=== PATIENT | female | born 1995 | race Caucasian/White ===

== ENCOUNTER 2018-11-20 10:00 | Day surgery (SDC) | payer OTHER, SELFPAY ==
[2018-11-20] VITALS (10 sets, daily range): BP systolic 110–132; BP diastolic 64–88; PULSE 55–103; RESP 16–20; TEMP 36–38; O2SAT 96–100; BMI 35.8
[2018-11-20 10:45] LABS: Internal QC Validated? YES +Cl - CLEAR BKGD; Pregnancy, Urine Negative Negative
[2018-11-20] MEDS: Cefazolin 2 GM in 0.9% Normal Saline 100 ML IV (11:48)
--- NOTE | 2018-11-20 12:23 | DCINST_ITS ---
Discharge Diet: No Restrictions Discharge Activity: Return to Normal Activity, May not drive while taking narcotic pain medications., May Shower, May Take a Tub Bath Call your doctor if your incision/area has: Increased Pain/ Swelling Call your doctor if you observe: Fever of 101 or Higher, Inability to urinate, Shortness of breath, Chest pain, Calf discomfort Allergies/Adverse Reactions: Allergies latex Allergy (Verified 11/18/18 11:56) Hives Medications to take at Discharge Albuterol IH (ProAir) [Proair Hfa (SP)Vent Pts] 1 - 2 puff INHALATION Q6H PRN PRN 11/18/18 Bupropion HCl [Wellbutrin Sr] 150 mg PO DAILY 11/18/18 Cetirizine HCl [Zyrtec] 10 mg PO DAILY 11/18/18 Montelukast Sodium [Singulair] 10 mg PO DAILY 11/18/18 Primary Care Physician: Bernardino Mcgrath MD [Primary Care Provider] - Test Results: Test results from this visit will be discussed in further detail at your follow- up appointment, if applicable. Please Follow Up With: Margarita Boo MD When: 3 WEEKS WITH LISA Proposed Discharge Date: 11/20/18
--- NOTE | 2018-11-20 12:52 | OP.PN_ITS ---
Immediate Post-Op Note Date of Procedure: 11/20/18 Primary Surgeon/Physician: Margarita Boo MD drum carrier: Margarita Boo Pre-Operative Diagnosis: left renal calculus Post-Operative Diagnosis: same Surgery/Procedure Performed:: left renal extracorporeal shockwave lithotripsy Description of Surgical Findings:: stones well fragmented with 3000shocks. 2 stones seen, one 7.5mm, other 4-5mm. Estimated Blood Loss: 0cc Specimen's removed: none Type of Anesthesia:: General - Admit VTE Documentation VTE Present on Admission: Yes VTE Mechan Device Prophylaxis: SCD's VTE Pharm Prophylaxis ordered?: No Reason prophylaxis not ordered:: Treatment Not Indicated
--- NOTE | 2018-11-20 12:52 | PCM.OPRPT ---
Problem List (1) Renal calculus, left Status: Acute Report of Operation Date of Procedure: 11/20/18 Pre-Operative Diagnosis: left renal calculus Post-Operative Diagnosis: same Surgery/Procedure Performed:: left renal extracorporeal shockwave lithotripsy Description of Surgical Findings:: stones well fragmented with 3000shocks. 2 stones seen, one 7.5mm, other 4-5mm. service sprinkler helper: Margarita Boo Type of Anesthesia:: General Specimen's removed: none Estimated Blood Loss (mL): 0cc Description of Procedure: The patient is a 23-year-old female with a history of left renal calculi presented to the office for definitive treatment secondary to intermittent left renal colic. After discussing all the risks benefits and alternatives with the patient and her mother, we agreed to proceed with extracorporal shockwave lithotripsy. She was taken to the operating room and placed on the operating room table. She was aligned with the lithotripter and 2 stones were easily seen in the area of the left renal pelvis. The largest was approximately 7.5 mm and the other one 4-5 mm in size. In total, 3000 shocks were applied to the stones. The stones were well fragmented at the conclusion of the case. The patient tolerated the procedure well without immediate complication. Grafts/Implants Used: none - Complications none - Admit VTE Documentation VTE Present on Admission: Yes VTE Mechan Device Prophylaxis: SCD's VTE Pharm Prophylaxis ordered?: No Reason prophylaxis not ordered:: Treatment Not Indicated
[2018-11-20] MEDS: HYDROcodone Bitartrate/Apap 5/325 Tablet PO (15:36)
--- NOTE | 2018-11-20 15:53 | SUR.PHASEII ---
AT 1530, PATIENT ASKING FOR PAIN MEDICATION, HOLDING LEFT FLANK, GRIMACING, IRRITABLE, NO PO MEDS ORDERED. PAGED DR GALLEGOS, ORDER OBTAINED. AT 1551 AFTER UP TO BATHROOM VIA WHEELCHAIR TO VOID, SOBBING, HOLDING LEFT FLANK, WRITHING IN PAIN. COMFORT MEASURES OFFERED, PAGING DR GALLEGOS.
--- NOTE | 2018-11-20 15:59 | CT_ITS ---
STUDY: CT ABDOMEN AND PELVIS WITHOUT CONTRAST REASON FOR EXAM: Female, 23 years old. Left kidney stone, lithotripsy. RADIATION DOSAGE (If Supplied By Facility): CTDIvol = ( 14.64 ) mGy, DLP = ( 776.51 ) mGycm TECHNIQUE: Transaxial images were obtained from the dome of the diaphragm to the symphysis pubis without oral contrast, and without intravenous contrast. Sagittal and coronal images were reconstructed. Individualized dose optimization techniques were used for this CT. COMPARISON: None. FINDINGS: Body wall soft tissues: No acute process. Osseous structures: No acute process. Inferior chest: No acute process. Hepatobiliary: Normal. Pancreas: No acute process. Spleen: Normal. Adrenal glands: Normal. Urogenital: There are no visible retained calculi of the right kidney. No right hydronephrosis or hydroureter. There are a few tiny retained nonobstructing calyceal calculi of the left kidney, the largest measuring approximately 3 mm. There are 3 tiny calculi within the collecting system itself, the largest measuring about 3 mm. There is very slight plethora of the left kidney with very minimal perinephric stranding. There is increased thickness of the wall of the left renal pelvis and left ureter with mild induration in the fat adjacent. There is no visible calculus along the course of the left ureter. There are 2 adjacent calculi dependent within the posterior base of the urinary bladder lumen, layering against the wall. These may have been recently passed. These measure proximally 4 mm and 3 mm respectively. The urinary bladder is otherwise normal. Normal uterus, ovaries and adnexa with no cul-de-sac free fluid. Pelvic floor and sidewalls and retroperitoneum: No mass or adenopathy. Vasculature: No acute process. Stomach: No acute process. Small bowel and mesentery: No acute process. Large bowel: Normal appendix, large bowel and rectum. Free fluid or free air: None. CT/Abdomen/Pelvis without Cont IMPRESSION: Mild left hydronephrosis and hydroureter. 2 small calculi dependent within the urinary bladder may have recently passed. There is no residual ureteral calculus. There are 3 tiny calculi within the left renal pelvis, nonobstructing. There are a few tiny calyceal calculi of the left kidney, nonobstructing. There are no retained calculi in the right kidney. Electronically Signed: Simba Michelle MD at 16:34 EST Tel , Service support ,
[2018-11-20] MEDS: Ketorolac 30 MG/ML Syringe IV (16:09)
--- NOTE | 2018-11-20 16:15 | SUR.PHASEII ---
AT 1555, DR GALLEGOS RETURNS PAGE, UPDATED ON WRITING IN PAIN, SOBBING TEARS, AGITATED. DR GALLEGOS STATES THE MOTHER JUST CALLED HER WELL. CT ABDOMEN/PELVIS ORDERED, DX LEFT KIDNEY STONE, TORADOL ORDERED. SCOPOLAMINE PATCH APPLIED PER DR LEXI CARRANZA ORDER FOR RENEWED C/O NAUSEA. SUYAPA IN RADIOLOGY/CT STATES FOUR STAT PATIENT CUED AHEAD OF THIS PATIENT, WILL CALL WHEN SCANNER READY. MOTHER AND PATIENT GIVEN THOROUGH EXPLANATION OF MEDICATION, PROCEDURE FOR CT SCAN AND RESULTS. PATIENT TRANSPORTED TO RADIOLOGY AT 1514. RETURNED AT 1423. AWAITING CALL FROM DR GALLEGOS.
--- NOTE | 2018-11-20 16:56 | SUR.PHASEII ---
AT 1649, DR GALLEGOS NOTIFIED OF CT SCAN RESULTS, STATES PATIENT WAS ACTIVELY PASSING A STONE. PATIENT RESTING MORE COMFORTABLY AT THIS TIME BUT STILL SOMEWHAT TEARFUL, NO LONGER WRITHING IN BED. DR GALLEGOS STATES PATIENT CAN BE D/C HOME, WILL FOLLOW UP IN OFFICE PLANNED. WILL UPDATE MOTHER AND PATIENT.
--- OUTSIDE RECORDS SUMMARY | 2019-01-25 02:48 | XMS RPT_ITS ---
:1995 Author Organization [employer] Address [address] [place] [address] Phone Care Team Providers Name Role Phone Naveed SCHWARTZ, Vivek Goldberg Reason for Visit Reason For Visit Description Start Date Postop - 1st visit Preliminary reason for visit data, not yet signed by the author as of left knee post Diagnostic arthroscopy and left knee with lateral meniscal repair and PRP injection. on 06/06/2018 Preliminary reason for visit data, not yet signed by the author as of Chief Complaint Chief Complaint Description Start Date left knee post Diagnostic arthroscopy and left knee with lateral meniscal repair and PRP injection. on 06/06/2018 Preliminary chief complaint data, not yet signed by the author as of Instructions Instruction Description Start Date Patient advised to follow-up with Primary Care Physician for BMI management. Plan of Care Type Date Detail Appointment 01:00 PM Vivek Lucio MD, [address] [facility], [place], [address], Medications Medication Instructions Start Stop Generic Name NDC Provider Date Date ZYRTEC ALLERGY 1 tablet daily CETIRIZINE HCL 03726445109 Sandy 10 MG TABS 0 Corsaro BRICK CLEANER SINGULAIR 10 1 tablet daily MONTELUKAST 19799896321 Sandy MG TABS 0 SODIUM Corsaro BRICK CLEANER PROAIR HFA 2 inhalation ALBUTEROL [id number] Sandy AERS daily as 0 SULFATE AERS Corsaro BRICK CLEANER needed PATANOL SOLN 1-2 drops each OLOPATADINE 05281316591 Sandy eye daily as 0 HCL SOLN Corsaro BRICK CLEANER needed Conditions or Problems Problem Name Problem Onset Status Entry Provider Comment Standard Annotate Code Date Date Description Other tear 734370771 Active Vivek Maier Tear of of lateral (SNOMED CT) / Fleissner lateral meniscus, meniscus of current knee injury, left knee, subsequent encounter Other tear S83.282A Active Vivek Maier Other tear of lateral (ICD-10-CM) / Fleissner of lateral meniscus MD meniscus, current current injury left injury, left knee initial knee, encounter initial encounter Allergies, Adverse Reactions, Alerts Allergy Name Reaction Start Date Severity Status Provider Description SEASONAL Critical Active Sandy Corsaro BRICK CLEANER LATAX Critical Active Sandy Corsaro BRICK CLEANER ANIMALS Critical Active Sandy Corsaro BRICK CLEANER Social History Concept Description Observation Name Observation Value Units Start Date Employment detail OCCUPATION#1 construction Preliminary social history data, not yet signed by the author as of Vital Signs Date Name Value Unit Description BMI (Body Mass 34.85 kg/m2 Body Mass Index Index) [Ratio] Preliminary vital sign data, not yet signed by the author as of BP Diastolic 84 mm[Hg] blood pressure, diastolic Preliminary vital sign data, not yet signed by the author as of BP Systolic 124 mm[Hg] blood pressure, systolic Preliminary vital sign data, not yet signed by the author as of Heart Rate 98 /min pulse rate E&M Preliminary vital sign data, not yet signed by the author as of Height 70 [in_us] height E&M Preliminary vital sign data, not yet signed by the author as of Height 178 cm height in centimeters E&M Preliminary vital sign data, not yet signed by the author as of Weight Measured 242 [lb_av] weight E&M Preliminary vital sign data, not yet signed by the author as of Weight Measured 110 kg weight in kilograms E&M Preliminary vital sign data, not yet signed by the author as of Results Date Name Value Unit Range Flag Description Office Visit: Postop - 1st visit, Rm: 12 MEDS REVIEW Done Documentation of current medications (procedure) Preliminary observation data, not yet signed by the author as of Preliminary observation data, not yet signed by the author as of Clinical Summary: HMSPatientID OOP account number Procedures Code Procedure Name Date Entry Date G8730 Pain assessment documented as positive - follow-up documented G8427 Current medications documented 1036F Tobacco screening was negative - non user G8417 BMI documented as above normal parameters - follow-up documented G8783 Blood pressure within normal parameters - no follow-up required [id number] Patient Encounter Medications Administered No information available. Immunizations No information available. Advance Directives There may be information available, but it has not been provided by the sender. Assessments There may be information available, but it has not been provided by the sender. Review of Systems There may be information available, but it has not been provided by the sender. Family History There may be information available, but it has not been provided by the sender. History of Past Illness There may be information available, but it has not been provided by the sender. History of Present Illness There may be information available, but it has not been provided by the sender.
--- OUTSIDE RECORDS SUMMARY | 2019-01-25 02:48 | XMS RPT_ITS ---
:1995 Author Organization [employer] Address [address] [place] [address] Phone Care Team Providers Name Role Phone Naveed SCHWARTZ, Vivek Maier Unavailable Reason for Visit Reason For Visit Description Start Date Postop - 1st visit Preliminary reason for visit data, not yet signed by the author as of left knee post torn lateral meniscal repair on 09/05/2018 Preliminary reason for visit data, not yet signed by the author as of Chief Complaint Chief Complaint Description Start Date left knee post torn lateral meniscal repair on 09/05/2018 Preliminary chief complaint data, not yet signed by the author as of Instructions Instruction Description Start Date Patient advised to follow-up with Primary Care Physician for BMI management. Plan of Care Type Date Detail Appointment 10:30 AM Vivek Lucio MD, [address], [address], Patient education \cps-sql1\CPS_PtEducation\CDC _FALL_PREVENTION.pdf, \cps-sql1\CPS_PtEducation\CDC _FALL_PREVENTION.pdf Medications Medication Instructions Start Stop Generic Name NDC Provider Date Date WELLBUTRIN SR taken once daily / BUPROPION HCL 06340948053 Vivek Maier 150 MG 08 Naveed SCHWARTZ [id number] ZYRTEC ALLERGY 1 tablet daily / CETIRIZINE HCL 28955927218 Sandy 10 MG TABS 20 Corsaro REGISTERED VASCULAR TECHNOLOGIST (RVT) SINGULAIR 10 1 tablet daily / MONTELUKAST 84513771324 Sandy MG TABS 20 SODIUM Corsaro REGISTERED VASCULAR TECHNOLOGIST (RVT) PROAIR HFA 2 inhalation / ALBUTEROL 07194806926 Sandy AERS daily as 20 SULFATE AERS Corsaro REGISTERED VASCULAR TECHNOLOGIST (RVT) needed PATANOL SOLN 1-2 drops each / OLOPATADINE 12279694992 Sandy eye daily as 20 HCL SOLN Corsaro REGISTERED VASCULAR TECHNOLOGIST (RVT) needed Conditions or Problems Problem Name Problem Onset Status Entry Provider Comment Standard Annotate Code Date Date Description 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 Vivek Maier Tibial plateau of left (SNOMED 11/20 11/20 Fleissner chondromal[address] lateral tibial CT) plateau Tibial plateau 6636408 Active Vivek Maier Tibial plateau chondromalacia (SNOMED 11/20 11/[address]) Other tear of 200893536 Active Vivek Maier Tear of lateral lateral (SNOMED 06/14 06/14 Fleissner meniscus of meniscus, CT) knee current injury, left knee, subsequent encounter Other tear of S83.282A Active Vivek Maier Other tear of lateral (ICD-10-CM 05/27 05/27 Fleissner lateral meniscus ) meniscus, current injury current injury, left knee left knee, initial initial encounter encounter Allergies, Adverse Reactions, Alerts Allergy Name Reaction Start Date Severity Status Provider Description SEASONAL Critical Active Sandy Corsaro REGISTERED VASCULAR TECHNOLOGIST (RVT) LATAX Critical Active Sandy Corsaro REGISTERED VASCULAR TECHNOLOGIST (RVT) ANIMALS Critical Active Sandy Corsaro REGISTERED VASCULAR TECHNOLOGIST (RVT) Social History Concept Description Observation Name Observation Value Units Start Date Alcohol use ETOH USE Yes Preliminary social history data, not yet signed by the author as of Vital Signs Date Name Value Unit Description BMI (Body Mass 29.64 kg/m2 Body Mass Index Index) [Ratio] Preliminary vital sign data, not yet signed by the author as of BP Diastolic 84 mm[Hg] blood pressure, diastolic Preliminary vital sign data, not yet signed by the author as of BP Systolic 128 mm[Hg] blood pressure, systolic Preliminary vital sign data, not yet signed by the author as of Heart Rate 73 /min pulse rate E&M Preliminary vital sign data, not yet signed by the author as of Height 69 [in_us] height E&M Preliminary vital sign data, not yet signed by the author as of Height 175 cm height in centimeters E&M Preliminary vital sign data, not yet signed by the author as of Weight Measured 200 [lb_av] weight E&M Preliminary vital sign data, not yet signed by the author as of Weight Measured 91 kg weight in kilograms E&M Preliminary vital sign data, not yet signed by the author as of Results Date Name Value Unit Range Flag Description Office Visit: Postop - 1st visit, Rm: 31 MEDS REVIEW Done Documentation of current medications (procedure) Preliminary observation data, not yet signed by the author as of XRAY HX of the left knee xray history on 09/05/2018 at [facility] Preliminary observation data, not yet signed by [...] within normal parameters - no follow-up required [facility]-[id number] Patient Encounter Medications Administered No information available. [...]
--- OUTSIDE RECORDS SUMMARY | 2019-01-25 02:48 | XMS RPT_ITS ---
:02/18/2000 Author Organization [employer] Address [address] [place] [address] Phone Care Team Providers Name Role Phone Naveed SCHWARTZ, Vivek Maier Unavailable Reason for Visit Reason For Visit Description Start Date Follow-up by complaint Preliminary reason for visit data, not yet signed by the author as of lower back deformity Preliminary reason for visit data, not yet signed by the author as of Chief Complaint Chief Complaint Description Start Date lower back deformity Preliminary chief complaint data, not yet signed by the author as of Instructions Instruction Description Start Date Completed Plan of Care Type Date Detail Appointment 02:00 PM Vivek Lucio MD, [address] [facility], [place], [address], Medications Medication Instructions Start Date Stop Date Generic Name NDC Provider Observed no known medications at Conditions or Problems Problem Name Problem Onset Status Entry Provider Comment Standard Annotate Code Date Date Description Scoliosis 71160284 Active Vivek Maier Idiopathic (and (05/[address]) AND/OR is), kyphoscoliosis idiopathic Allergies, Adverse Reactions, Alerts Observed no known allergies at Social History Concept Description Observation Name Observation Value Units Start Date Employment detail OCCUPATION#1 student Preliminary social history data, not yet signed by the author as of Vital Signs Date Name Value Unit Description BMI (Body Mass 20.62 kg/m2 Body Mass Index Index) [Ratio] Preliminary vital sign data, not yet signed by the author as of BP Diastolic 70 mm[Hg] blood pressure, diastolic Preliminary vital sign data, not yet signed by the author as of BP Systolic 100 mm[Hg] blood pressure, systolic Preliminary vital sign data, not yet signed by the author as of Heart Rate 83 /min pulse rate E&M Preliminary vital sign data, not yet signed by the author as of Height 74 [in_us] height E&M Preliminary vital sign data, not yet signed by the author as of Height 188 cm height in centimeters E&M Preliminary vital sign data, not yet signed by the author as of Weight Measured 160 [lb_av] weight E&M Preliminary vital sign data, not yet signed by the author as of Weight Measured 73 kg weight in kilograms E&M Preliminary vital sign data, not yet signed by the author as of Results Date Name Value Unit Range Flag Description Office Visit: Follow-up by complaint, Rm: 30 MEDS REVIEW Done Documentation of current medications (procedure) Preliminary observation data, not yet signed by the author as of Preliminary observation data, not yet signed by the author as of Clinical Summary: HMSPatientID OOP account number Clinical Summary: Data Submitted by Patient in Portal DEP EXERCISE No data entered by patient, exercise history DEP DRUG USE No data entered by patient, drug (of abuse) use DEP ETOH USE No data entered by patient, alcohol (ethanol or ETOH) use DEP SH CSMO never smoker data entered by patient, social history, current smoker [employer] 2 floors housing unit size (asthma environmental history, housing) (from single family to don't know) [place] house Housing Type: apartment, house, intermediate, trailer, none #DEP CHLDRN No Number of dependent children DEP SH MAST single data entered by patient, social history, marital status DEP EMPLOYER unemployed data entered by patient, Employer Name FATHER A/D Alive father of patient is alive or MOTHER A/D Alive mother of patient is alive or [employer] entered surgical history comments DEP SURGERY Appendectomy Data entered by patient, history of past surgeries DEP PROB LST I do not have any Data entered by past medical patient, problem illnesses or list conditions RLATNSHPINFR Mother Relationship of informant to patient DEBPCURRMED I am not taking Data Entered by any medications, Patient, Current vitamins or Medications Taking supplements. DEP ALG LIST I don't have any Data entered by drug allergies.,I patient, allergy don't have any list food allergies.,I don't have any environmental allergies. Procedures No information available. Medications Administered No information available. Immunizations No [...]
--- OUTSIDE RECORDS SUMMARY | 2019-01-25 02:49 | XMS RPT_ITS ---
:1995 Author Organization [facility] Address [facility] [place] [address] Phone Care Team Providers Name Role Phone Naveed SCHWARTZ, Vivek Goldberg Reason for Visit Reason For Visit Description Start Date New/Est - 1st visit with physician Preliminary reason for visit data, not yet signed by the author as of left knee pain Preliminary reason for visit data, not yet signed by the author as of Chief Complaint Chief Complaint Description Start Date left knee pain Preliminary chief complaint data, not yet signed by the author as of Instructions Instruction Description Start Date Patient advised to follow-up with Primary Care Physician for BMI management. Plan of Care Type Date Detail Appointment 03:00 PM Vivek Lucio MD, [address] [email or web address], [place], [address], Appointment 09:00 AM Vivek Lucio MD, [address] [facility], [email or web address], [place], [address], Pending order XR KNEE 1-2 VWS-[id number] Pending order MRI left knee without contrast Medications Medication Instructions Start Stop Generic Name NDC Provider Date Date ZYRTEC ALLERGY 1 tablet daily CETIRIZINE HCL 43355457002 Sandy 10 MG TABS 0 [place] [employer] HELPER SINGULAIR 10 1 tablet daily MONTELUKAST [id number] Sandy MG TABS 0 SODIUM [place] [employer] HELPER PROAIR HFA 2 inhalation 2018/07/2 ALBUTEROL [id number] Sandy AERS daily as 0 SULFATE AERS [place] PIPE INS[employer]ATOR HELPER needed PATANOL SOLN 1-2 drops each OLOPATADINE [id number] Sandy eye daily as 0 HCL SOLN [place] PIPE INS[employer]ATOR HELPER needed Conditions or Problems Problem Problem Onset Status Entry Provider Comment Standard Annotate Name Code Date Date Description Other tear S83.282A Active Vivek Darrion Other tear of of lateral (ICD-10-C / Fleissner lateral meniscus M) meniscus, current current injury left injury, left knee knee, initial initial encounter encounter Allergies, Adverse Reactions, Alerts Allergy Name Reaction Start Date Severity Status Provider Description SEASONAL Critical Active Sandy Corsaro PIPE INS[employer]ATOR HELPER LATAX Critical Active Sandy Corsaro PIPE INSULATOR HELPER ANIMALS Critical Active Sandy Corsaro PIPE INSULATOR HELPER Social History Concept Description Observation Name Observation Value Units Start Date Employment detail OCCUPATION#1 construction Preliminary social history data, not yet signed by the author as of Vital Signs Date Name Value Unit Description BMI (Body Mass 34.85 kg/m2 Body Mass Index Index) [Ratio] Preliminary vital sign data, not yet signed by the author as of BP Diastolic 91 mm[Hg] blood pressure, diastolic Preliminary vital sign data, not yet signed by the author as of BP Diastolic 87 mm[Hg] blood pressure, diastolic, second observation Preliminary vital sign data, not yet signed by the author as of BP Systolic 136 mm[Hg] blood pressure, systolic Preliminary vital sign data, not yet signed by the author as of BP Systolic 116 mm[Hg] blood pressure, systolic, second observation Preliminary vital sign data, not yet signed by the author as of Heart Rate 80 /min pulse rate E&M Preliminary vital sign [...] Value Unit Range Flag Description Office Visit: New/Est - 1st visit with physician, Rm: 31 MEDS REVIEW Done Documentation of [...] within normal parameters - no follow-up required [id number] Patient Encounter Medications Administered No information available. [...]
--- OUTSIDE RECORDS SUMMARY | 2019-01-25 02:49 | XMS RPT_ITS ---
:1995 Author Organization OHIP Care Team Providers Name Role Phone Margarita Boo Attending Unavailable Margarita Boo Referring Unavailable Bernardino López Primary Care Unavailable HITESH AGUILA Attending Unavailable VIVEK LUCIO Referring Unavailable BERNARDINO LÓPEZ Primary Care Unavailable VIVEK LUCIO Admitting Unavailable VIVEK LUCIO Attending Unavailable BERNARDINO LÓPEZ Primary Care Unavailable VIVEK LUCIO Admitting Unavailable VIVEK LUCIO Attending Unavailable BERNARDINO LÓPEZ Primary Care Unavailable VIVEK LUCIO Admitting Unavailable VIVEK LUCIO Attending Unavailable PEDRO ZIMMEMRAN Attending Unavailable Sokari, Telemate Admitting Unavailable Somadny, Telemate Attending Unavailable Bernardino López Primary Care Unavailable Bernardino López Primary Care Unavailable Eva Palomares Admitting Unavailable Eva Palomares Attending Unavailable PROBLEMS PROBLEMS DATE TYPE CONDITION / CODE ATTENDING STATUS SOURCE 11/20/2018 Unknown N20.0 - Calculus Margarita Boo Active [facility] N20.0(ICD-10) Hospital Repository 03/16/2018 Active Unspecified ELSIE, Active [facility] abdominal pain / PEDRO LOU Other [place] R10.9(ICD-10) Repository PROCEDURES PROCEDURES No Procedure Records FoundRESULTS RESULTS UA COMPLETE Collected: 11/21/2018 Status: F Source: GNOSTICIST 8:09 AM [facility] REPOSITORY TYPE CODE TESTS RESULT OUT OF REFERENCE UNITS RANGE LAB 07783690( Yellow LOINC) UA Color Normal Colorless LAB 04469463( Clear LOINC) UA Clarity Normal Clear LAB 83654794( Negative LOINC) UA Glucose Normal Negative LAB 23813896( Negative LOINC) UA Bili Normal Negative LAB 12597659( Negative LOINC) UA Ketones Normal Negative LAB 97017675( 1.003-1.030 LOINC) UA Spec Normal Grav 1.004 LAB 93415592( 4.6-8.0 LOINC) UA pH Normal 7.0 LAB 54130020( Negative LOINC) UA Protein Normal Negative LAB 67759233( LOINC) UA Normal Urobilinogen Negative Result Comment: Due to a manufacturing issue, low positive urobilinogen results may be fasely positive. Correlate with urine bilirubin and additional clinical/laboratory findings to assess the risk of hemolytic anemia or liver disease. If clinically indicated, repeat testing with an alternate method is available by contacting the laboratory within 24 hours. LAB 26197947(LOINC) Negative Normal UA Nitrite Negative LAB 64860970(LOINC) Negative Normal UA Blood 3+ LAB 37553777(LOINC) Negative Normal UA Leuk Est Negative LAB 64107479(LOINC) 0-3 /HPF UA Abnormal RBC 5-10 LAB 61919730(LOINC) 0-5 /HPF Normal UA WBC 0-5 LAB 21166756(LOINC) 0-5 /HPF Normal UA Squam 0-5 Epithelial LAB [id number](LOINC) None /HPF UA Abnormal Bacteria 1+ Performed By: #### [id number] #### [facility] Urinalysis Automated Subsection [address] [place] [address] ABDOMEN/PELVIS WITHOUT Observed: 11/20/2018 Status: F Source: JORDON CONT 4:00 PM [facility] REPOSITORY [facility] Imaging Services [address] [place] [address] Abdomen/Pelvis without Cont MR#: [id number] Acct: [id number] Name: RALPH BARNEY Rep #: [id number] : 1995 F 23 From: Simba Michelle MD PCP: Bernardino López MD [place] [facility]: Abdomen/Pelvis without Cont Date of Exam: 11/20/18 Exam# [id number] Ordering Dr: Margarita Boo MD STUDY: CT ABDOMEN AND PELVIS WITHOUT CONTRAST REASON FOR EXAM: Female, 23 years old. Left kidney stone, lithotripsy. RADIATION DOSAGE (If Supplied By Facility): CTDIvol = ( 14.64 ) mGy, DLP = ( 776.51 ) mGycm TECHNIQUE: Transaxial images were obtained from the dome of the diaphragm to the symphysis pubis without oral contrast, and without intravenous contrast. Sagittal and coronal images were reconstructed. Individualized dose optimization techniques were used for this CT. COMPARISON: None. FINDINGS: Body wall soft tissues: No acute process. Osseous structures: No acute process. Inferior chest: No acute process. Hepatobiliary: Normal. Pancreas: No acute process. Spleen: Normal. Adrenal glands: Normal. Urogenital: There are no visible retained calculi of the right kidney. No right hydronephrosis or hydroureter. There are a few tiny retained nonobstructing calyceal calculi of the left kidney, the largest measuring approximately 3 mm. There are 3 tiny calculi within the collecting system itself, the largest measuring about 3 mm. There is very slight plethora of the left kidney with very minimal perinephric stranding. There is increased thickness of the wall of the left renal pelvis and left ureter with mild induration in the fat adjacent. There is no visible calculus along the course of the left ureter. There are 2 adjacent calculi dependent within the posterior base of the urinary bladder lumen, layering against the wall. These may have been recently passed. These measure proximally 4 mm and 3 mm respectively. The urinary bladder is otherwise normal. Normal uterus, ovaries and adnexa with no cul-de-sac free fluid. Pelvic floor and sidewalls and retroperitoneum: No mass or adenopathy. Vasculature: No acute process. Stomach: No acute process. Small bowel and mesentery: No acute process. Large bowel: Normal appendix, large bowel and rectum. Free fluid or free air: None. CT/Abdomen/Pelvis without Cont IMPRESSION: Mild left hydronephrosis and hydroureter. 2 small calculi dependent within the urinary bladder may have recently passed. There is no residual ureteral calculus. There are 3 tiny calculi within the left renal pelvis, nonobstructing. There are a few tiny calyceal calculi of the left kidney, nonobstructing. There are no retained calculi in the right kidney. Electronically Signed: Simba Michelle MD at 16:34 EST Tel , Service support , CC: Margarita Boo MD; Bernardino López MD Dimmer Board Operator: Signed OPERATIVE REPORT Observed: 11/20/2018 Status: F Source: SUMAVA RESORTS 12:54 PM [facility] REPOSITORY [facility] Medical Records Department [address] [place] [address] Operative Report 11/20/18 1252 MR#: [id number] Acct: [id number] Name: RALPH BARNEY Rep #: [id number] : 1995 23 From: Margarita Boo MD PCP: Bernardino López MD Status: [place] [facility] [place] Location: [place] [address] Problem List (1) Renal calculus, left Status: Acute Report of Operation Date of Procedure: 11/20/18 Pre-Operative Diagnosis: left renal calculus Post-Operative Diagnosis: same Surgery/Procedure Performed:: left renal extracorporeal shockwave lithotripsy Description of Surgical Findings:: stones well fragmented with 3000shocks. 2 stones seen, one 7.5mm, other 4-5mm. motorcoach operator: Margarita Boo Type of Anesthesia:: General Specimen's removed: none Estimated Blood Loss (mL): 0cc Description of Procedure: The patient is a 23-year-old female with a history of left renal calculi presented to the office for definitive treatment secondary to intermittent left renal colic. After discussing all the risks benefits and alternatives with the patient and her mother, we agreed to proceed with extracorporal shockwave lithotripsy. She was taken to the operating room and placed on the operating room table. She was aligned with the lithotripter and 2 stones were easily seen in the area of the left renal pelvis. The largest was approximately 7.5 mm and the other one 4-5 mm in size. In total, 3000 shocks were applied to the stones. The stones were well fragmented at the conclusion of the case. The patient tolerated the procedure well without immediate complication. Grafts/Implants Used: none - Complications none - Admit VTE Documentation VTE Present on Admission: Yes VTE Mechan Device Prophylaxis: SCD's VTE Pharm Prophylaxis ordered?: No Reason prophylaxis not ordered:: Treatment Not Indicated 11/20/18 1254 <Electronically signed by Margarita Boo MD> Date Margarita Boo MD CC: Margarita Boo MD; Bernardino López MD Signed DISCHARGE INSTRUCTION Observed: 11/20/2018 Status: F Source: JORDON 12:23 PM [facility] REPOSITORY [facility] Medical Records Department [address] [place] [address] Instructions for Home/Discharge Instructions 11/20/18 1221 MR#: [id number] Acct: [id number] Name: RALPH BARNEY Rep #: [id number] : 1995 23 From: Margarita Boo MD PCP: Bernardino López MD Status: REG [facility] Discharge Diet: No Restrictions Discharge Activity: Return to Normal Activity, May not drive while taking narcotic pain medications., May Shower, May Take a Tub Bath Call your doctor if your incision/area has: Increased Pain/ Swelling Call your doctor if you observe: Fever of 101 or Higher, Inability to urinate, Shortness of breath, Chest pain, Calf discomfort Allergies/Adverse Reactions: Allergies latex Allergy (Verified 11/18/18 11:56) Hives Medications to take at Discharge Albuterol IH (ProAir) [Proair Hfa (SP)Vent Pts] 1 - 2 puff INHALATION Q6H PRN PRN 11/18/18 Bupropion HCl [Wellbutrin Sr] 150 mg PO DAILY 11/18/18 Cetirizine HCl [Zyrtec] 10 mg PO DAILY 11/18/18 Montelukast Sodium [Singulair] 10 mg PO DAILY 11/18/18 Primary Care Physician: Bernardino López MD [Primary Care Provider] - Test Results: Test results from this visit will be discussed in further detail at your follow-up appointment, if applicable. Please Follow Up With: Margarita Boo MD When: 3 WEEKS WITH KUB Proposed Discharge Date: 11/20/18 11/20/18 1223 <Electronically signed by Margraita Boo MD> Date Margarita Boo MD CC: Bernardino López MD Signed ,URINE Collected: 11/20/2018 Status: F Source: JORDON 10:37 AM [facility] REPOSITORY Order Comment: Reason for Laboratory Test PRE-OP TYPE CODE TESTS RESULT OUT OF REFERENCE UNITS RANGE LAB L400.8000 Negative Normal HCGUQUAL Negative Result Comment: Very dilute urine specimens, as indicated by a low specific gravity, may not contain retail account representative levels of hCG. If is still suspected, a first morning urine specimen should be collected 48 hours later and tested. Performed By: #### [id number] #### [facility] Laboratory [address] [place], [address] H&P Observed: 10/31/2018 Status: COMPLETED Source: AILEEN 6:37 AM [facility] REPOSITORY PRE-OP HISTORY AND PHYSICAL DATE OF SERVICE: 10/31/2018 ATTENDING PROVIDER: Vivek Lucio MD SURGICAL DIAGNOSIS: left knee cartilage injury Proposed surgical procedure: dx arthroscopy left knee with autologous chondrocyte implantation of tibial plateau CHIEF COMPLAINT: left knee injury HISTORY OF PRESENT ILLNESS: Ralph Barney is a 23 y.o. female who presents today with a PMH significant for surgery to her left knee. The history is provided by the patient and mother and a chart review for evaluation for surgical risk factors. She has had mult surgeries to her left knee and had her last in June 2018- she fell on to the knee in Jul and knew she had an injury- she was seen by Dr Lucio and was scheduled for surgery on her break from school- she is healthy otherwise and is doing well with her asthma MEDICAL/SURGICAL HISTORY: Past Medical History: Diagnosis Date Kidney stone Left Uncomplicated asthma mild/ no hospitalizations Past Surgical History: Procedure Laterality Date ANTERIOR CRUCIATE LIGAMENT REPAIR Left 06/06/2018 DIAGNOSTIC ARTHROSCOPY LEFT KNEE WITH ANTERIOR CRUCIATE LIGAMENT RECSONTRUCTION, PLATELET RICH PLASMA AND COLLAGEN CARRIER performed by Vivek Lucio MD at [facility] OR KNEE ARTHROSCOPY Left 2015 diagnostic arthroscopy left knee with partial lateral menisectomy performed by Vivek Lucio MD at [facility] OR KNEE ARTHROSCOPY Left 09/05/2018 DIAGNOSTIC ARTHROSCOPY LEFT KNEE WITH PARTIAL LATERAL MENISECTOMY performed by Vivek Lucio MD at [facility] OR ORTHOPEDIC SURGERY left meniscus 3 previous repairs Past hospitalizations: no DRUG/FOOD ALLERGIES: Allergies Allergen Reactions Latex Hives Other Other (See Comments) Band aids cause skin breakdown. Shellfish-Derived Products By testing MEDICATIONS: Medications Prior to Admission Medication Sig Dispense Refill Last Dose etogestrel 68 mg IMPL by Subdermal route Taking at Unknown time diphenhydrAMINE (BENADRYL) 25 MG TABS tablet Take 50 mg by mouth every 6 hours as needed for Itching 10/30/2018 at 2340 ALPRAZolam (XANAX) 0.5 MG tablet TAKE 1 TABLET TWICE DAILY NEEDED FOR ANXIETY 0 Not Taking at Unknown time buPROPion (WELLBUTRIN XL) 150 MG XL tablet TAKE 1 TABLET BY MOUTH EVERY DAY 2 10/24/2018 at 0900 montelukast (SINGULAIR) 10 MG tablet TAKE 1 TABLET BY MOUTH EVERY EVENING 5 10/30/2018 at 2100 cetirizine (ZYRTEC) 10 MG tablet Take 10 mg by mouth daily. 10/30/2018 at 2100 ANESTHESIA HISTORY: Difficulty with anesthesia? No Family history of difficulty with anesthesia? no Signs/symptoms of JENNA? no HEME/BLEEDING HISTORY: History of bleeding issues in patient? no Bleeding problems in family? no History of anemia in patient? no Sickle Cell issues in patient or family? N/A REVIEW OF SYSTEMS: Comprehensive review of systems: History obtained from Mother, chart review and the patient. General ROS: negative Respiratory ROS: no cough, shortness of breath, or wheezing Cardiovascular ROS: no chest pain or dyspnea on exertion Gastrointestinal ROS: no abdominal pain, change in bowel habits, or black or bloody stools Musculoskeletal ROS: positive for - joint pain A complete ROS was performed. Pertinent positives have been documented above or are in the HPI. All other systems were negative. Recent Illnesses? no HISTORY: Noncontributory DEVELOPMENTAL HISTORY: Milestones: All met as expected IMMUNIZATIONS: Stated as up to date, no records available SOCIAL/FAMILY HISTORY: Ralph lives with parents Special Needs: None Preferred Language: Eritrean Daycare: No School: Yes: college senior Smoking/Alcohol/Drug Use or Exposure: No Family History Problem Relation Age of Onset Anesth Problems Neg Hx Bleeding Prob Neg Hx VITAL SIGNS: Vitals: 10/31/18 0619 BP: 140/82 Pulse: 109 Resp: 20 Temp: 36 C (96.8 F) Ht Readings from Last 1 Encounters: 10/31/18 175.4 cm Wt Readings from Last 1 Encounters: 10/31/18 (!) 108.1 kg Body mass index is 35.14 kg/m . Facility age limit for growth percentiles is 20 years. SpO2 Readings from Last 3 Encounters: 10/31/18 100% 09/05/18 99% 06/06/18 99% PHYSICAL EXAM: General: Patient appears healthy, well developed, well nourished, in no acute distress Head: atraumatic and normocephalic Neuro: alert, oriented appropriately for age Eyes: pupils equal, round, and reactive to light Ears: canals clear, normal, tragus nontender Nose: nares patent without discharge Dentition: intact Throat: oropharynx is clear Neck: supple Chest: breath sounds are clear to auscultation bilaterally without rales, rhonchi, or wheezes Cardiac: regular rate and rhythm, normal S1 and S2, peripheral pulses strong and equal, capillary refill is normal Abdomen: abdomen is soft, nontender, and nondistended without hepatosplenomegaly or masses Back: deferred Female: deferred Male: na Skin: pink, warm, well perfused Lymphatic: no adenopathy noted Musculoskeletal: left knee with well healed surgical incisions- she has some limited ROM- denies pain/ pink warm mobile toes brisk cap refill DIAGNOSTIC STUDIES REVIEWED: The following lab results have been ordered/reviewed. HCG neg No results found for: CALCIUM, CO2, CL, CREATININE, GLU, K, NA, BUN No results found for: RBC, RDW, WBC, HCT, HGB, MCH, MCHC, MCV, MPV, BASOPCT, EOSPCT, LYMPHOPCT, MONOPCT, NEUTOPHILPCT, CORRECTEDWBC, NEUTROPHIL, NRBC, PLTEST No results found for: HGB No results found for: APTT, INR No results found for: TSH, T7QZXPT, F2EXQPC, THYROIDAB HCG,Urine Date Value Ref Range Status 06/06/2018 Negative mIU/mL Final Comment: Non females and males-Negative females-Positive No results found for: HCGSERUM ASSESSMENT: Patient Active Problem List Diagnosis Tear of meniscus, lateral Asthma Chondromalacia of knee, left Acute cartilage injury of knee, left, initial encounter Ralph Barney is a 23 y.o. female with hx of mult knee surgeries. She presents today for a history and physical for the above mentioned surgical procedure in good condition. She has the following risk factors: none. Based on this evaluation for surgical risk factors and review of necessary clinical studies (if indicated), she has no other past medical history or past surgical history that would impact this procedure. PLAN: Surgery as scheduled Pain management team Patient/family education Nutritional management Hemodynamic monitoring Respiratory monitoring Neurovascular monitoring OTHER FINDINGS OR COMMENTS: Jewelry removed? yes Jeannine Geronimo CNP 10/31/2018 6:37 AM H&P Observed: 09/05/2018 Status: COMPLETED Source: AILEEN 10:22 AM [facility] REPOSITORY .PRE-OP HISTORY AND PHYSICAL DATE OF SERVICE: 09/05/2018 ATTENDING PROVIDER: Vivek Lucio MD SURGICAL DIAGNOSIS: Acute lateral mensicus tear of left knee Proposed surgical procedure: Diagnostic arthroscopy left knee with partial lateral menisectomy CHIEF COMPLAINT: torn meniscus HISTORY OF PRESENT ILLNESS: Ralph Barney is a 23 y.o. female who presents today with a history of multiple repairs to left mensicus (x3--2014, 2015) and recently a left knee ACL repair on 06/2018. She was doing well after her previous surgery; however, she slipped and fell on a wet sidewalk. She fell to the ground and knew immediately her knee was injured. She had immediate pain and swelling. She continues to have pain and instability. Denies numbness/tingling. She has a history of anxiety/depression and asthma, which is currently well controlled. The history is provided by the patient and mother and chart review. MEDICAL/SURGICAL HISTORY: Past Medical History: Diagnosis Date Kidney stone Left Uncomplicated asthma mild/ no hospitalizations Past Surgical History: Procedure Laterality Date ANTERIOR CRUCIATE LIGAMENT REPAIR Left 06/06/2018 DIAGNOSTIC ARTHROSCOPY LEFT KNEE WITH ANTERIOR CRUCIATE LIGAMENT RECSONTRUCTION, PLATELET RICH PLASMA AND COLLAGEN CARRIER performed by Vivek Lucio MD at [facility] OR KNEE ARTHROSCOPY Left 2015 diagnostic arthroscopy left knee with partial lateral menisectomy performed by Vivek Lucio MD at [facility] OR ORTHOPEDIC SURGERY left meniscus 3 previous repairs Past hospitalizations: no DRUG/FOOD ALLERGIES: Allergies Allergen Reactions Latex Hives Other Other (See Comments) Band aids cause skin breakdown. Shellfish-Derived Products By testing MEDICATIONS: Prescriptions Prior to Admission Medication Sig Dispense Refill Last Dose diphenhydrAMINE (BENADRYL) 25 MG TABS tablet Take 50 mg by mouth every 6 hours as needed for Itching 09/05/2018 at 0001 acetaminophen (TYLENOL) 325 MG tablet Take 325 mg by mouth every 4 hours as needed for Pain 09/04/2018 at 1600 etogestrel 68 mg IMPL by Subdermal route Taking at Unknown time ALPRAZolam (XANAX) 0.5 MG tablet TAKE 1 TABLET TWICE DAILY NEEDED FOR ANXIETY 0 Not Taking at Unknown time buPROPion (WELLBUTRIN XL) 150 MG XL tablet TAKE 1 TABLET BY MOUTH EVERY DAY 2 09/04/2018 at 0800 montelukast (SINGULAIR) 10 MG tablet TAKE 1 TABLET BY MOUTH EVERY EVENING 5 09/04/2018 at 2200 cetirizine (ZYRTEC) 10 MG tablet Take 10 mg by mouth daily. 09/04/2018 at 2200 (Not in an outpatient encounter) ANESTHESIA HISTORY: Difficulty with anesthesia? No Family history of difficulty with anesthesia? Mother-- delayed emergence, PONV Signs/symptoms of JENNA? no BLEEDING HISTORY: History of bleeding issues in patient? no Bleeding problems in family? no History of anemia in patient? no Sickle Cell issues in patient or family? N/A REVIEW OF SYSTEMS: Comprehensive review of systems: Psychological ROS: positive for - anxiety and depression Allergy and Immunology ROS: positive for - seasonal allergies Respiratory ROS: positive for - h/o asthma, well controlled Musculoskeletal ROS: positive for - x4 left knee surgeries; left knee pain, swelling, instability A complete ROS was performed. Pertinent positives have been documented above or are in the HPI. All other systems were negative. Recent Illnesses? no HISTORY: Noncontributory DEVELOPMENTAL HISTORY: Milestones: All met as expected IMMUNIZATIONS: Stated as up to date, no records available SOCIAL/FAMILY HISTORY: Ralph lives with on campus (college) Special Needs: None Preferred Language: Eritrean Daycare: No School: Yes: College Smoking/Alcohol/Drug Use or Exposure: No Family History Problem Relation Age of Onset Anesth Problems Neg Hx Bleeding Prob Neg Hx VITAL SIGNS: Vitals: 09/05/18 1020 BP: 106/65 Pulse: 87 Resp: 18 Temp: 36.7 C (98.1 F) Ht Readings from Last 1 Encounters: 09/05/18 175.5 cm Wt Readings from Last 1 Encounters: 09/05/18 (!) 106 kg Body mass index is 34.42 kg/m . Facility age limit for growth percentiles is 20 years. SpO2 Readings from Last 3 Encounters: 09/05/18 100% 06/06/18 99% 06/05/18 100% PHYSICAL EXAM: General: Patient appears healthy, well developed, well nourished, in no acute distress and alert, oriented appropriately for age Head: atraumatic Neuro: alert, oriented appropriately for age Eyes: sclera and conjunctiva clear Ears: canals clear, normal, tragus nontender Nose: nares patent without discharge Dentition: intact Throat: oropharynx is clear Neck: there is full range of motion Chest: breath sounds are clear to auscultation bilaterally without rales, rhonchi, or wheezes Cardiac: regular rate and rhythm, normal S1 and S2, no murmur, rub, or gallop Abdomen: deferred Back: deferred Female: deferred Male: n/a Skin: pink, warm, well perfused Lymphatic: no cervical adenopathy noted Musculoskeletal: No edema, erythema, ecchymosis to left knee. Previous surgical incisions well healed. DIAGNOSTIC STUDIES REVIEWED: HCG negative/reviewed No results found for: CALCIUM, CO2, CL, CREATININE, GLU, K, NA, BUN No results found for: RBC, RDW, WBC, HCT, HGB, MCH, MCHC, MCV, MPV, BASOPCT, EOSPCT, LYMPHOPCT, MONOPCT, NEUTOPHILPCT, CORRECTEDWBC, NEUTROPHIL, NRBC, PLTEST No results found for: HGB No results found for: APTT, INR No results found for: TSH, C5BYVYZ, W2MRKOR, THYROIDAB HCG,Urine Date Value Ref Range Status 06/06/2018 Negative mIU/mL Final Comment: Non females and males-Negative females-Positive No results found for: HCGSERUM ASSESSMENT: Patient Active Problem List Diagnosis Tear of meniscus, lateral Asthma Ralph Barney is a 23 y.o. female with an acute lateral mensicus tear of the left knee. She presents today for a history and physical for the above mentioned surgical procedure in good condition. PLAN: Surgery as scheduled Patient/family education HCG negative OTHER FINDINGS OR COMMENTS: Lilliam Purcell CNP 09/05/2018 10:[address] ABDOMEN/PELVIS W/O Observed: 06/21/2018 Status: F Source: GNOSTICIST CONTRAST 11:05 PM [facility] REPOSITORY Exam Date/Time: 06/21/2018 23:20 EDT Reason for Exam: Pain Report STUDY: CT Abdomen/Pelvis w/o Contrast; 06/21/2018 11:20 pm INDICATION: Pain. Bilateral flank pain with history of kidney stones. COMPARISON: None. ACCESSION NUMBER(S): [id number] ORDERING CLINICIAN: Jody Ta TECHNIQUE: CT of the abdomen and pelvis was performed with no contrast administration. Coronal and sagittal reformats were obtained. FINDINGS: LOWER CHEST: No focal consolidation or pleural effusion. ABDOMEN: LIVER: Unremarkable unenhanced appearance. BILE DUCTS: No obvious dilation. GALLBLADDER: Present. PANCREAS: No peripancreatic inflammatory changes. SPLEEN: Not enlarged. ADRENAL GLANDS: Unremarkable. KIDNEYS AND URETERS: No perinephric stranding. No hydronephrosis or hydroureter. There is a 7 mm calculus at the left renal pelvis. There is a 4 mm calculus at the interpolar region of the left kidney. No calculi are noted at the right kidney. No obstructing ureteral calculi are identified. Exam Date/Time: 06/21/2018 23:20 EDT Report BOWEL: No dilated bowel loops or focal inflammatory changes. The appendix is normal. VESSELS: No abdominal aortic aneurysm. PELVIS: The urinary bladder is decompressed. The uterus is present. PERITONEUM/RETROPERITONEUM/LYMPH NODES: No free fluid or free air. No retroperitoneal hemorrhage. No pathologically enlarged lymph nodes are identified. ABDOMINAL WALL: The abdominal wall soft tissues are within normal limits. BONE AND SOFT TISSUE: No acute osseous findings. IMPRESSION: 1. No hydronephrosis or obstructing ureteral calculi. Left nephrolithiasis with a 7 mm calculus at the renal pelvis. FINAL REPORT Dictated: 06/21/2018 11:29 pm Janny Pennington DO Signed (Electronic Signature): 06/21/2018 11:29 pm Signed by: Janny Pennington DO Technologist: SADIE CRABTREE QLT Collected: 06/21/2018 Status: F Source: GNOSTICIST 10:23 PM [facility] REPOSITORY TYPE CODE TESTS RESULT OUT OF RANGE REFERENCE UNITS LAB 6974874(DWIGHT Neg NC) Normal U beta Neg hCG Ql Performed By: #### [id number] #### [place] [address] UA COMPLETE Collected: 06/21/2018 Status: F Source: GNOSTICIST 10:23 PM [facility] REPOSITORY TYPE CODE TESTS RESULT OUT OF RANGE REFERENCE UNITS LAB [id number]( Yellow LOINC) Normal UA Color Yellow LAB 49626161( Clear LOINC) Normal UA Clarity Clear LAB 91053113( Negative LOINC) Normal UA Glucose Negative LAB 37244837( Negative LOINC) Normal UA Bili Negative LAB 52324202( Negative LOINC) Normal UA Ketones Negative LAB 64515057( 1.003-1.030 LOINC) Normal UA Spec Grav 1.021 LAB 61903162( 4.6-8.0 LOINC) Normal UA pH 6.0 LAB 42391471( Negative LOINC) Normal UA Protein Negative LAB 76897929( LOINC) Normal UA Urobilinogen Negative LAB 46145738( Negative LOINC) Normal UA Nitrite Negative LAB 96972186( Negative LOINC) Normal UA Blood 3+ LAB 49190916( Negative LOINC) Normal UA Leuk Est Negative LAB 31623975( 0-3 /HPF LOINC) UA RBC Abnormal >50 LAB 51069986( 0-5 /HPF LOINC) Normal UA WBC 0-5 LAB 40592856( 0-5 /HPF LOINC) UA Squam Abnormal Epithelial 5-10 LAB 10795614( None /HPF LOINC) UA Bacteria Abnormal Trace LAB 21760937( Trace /LPF LOINC) UA Mucous Abnormal Few Performed By: #### [id number] #### [place] Urinalysis Automated Subsection [address] [place] [address] H&P Observed: 06/06/2018 Status: COMPLETED Source: AILEEN 12:03 PM [facility] REPOSITORY Ralph Barney is a 23 y.o. female who presents today with torn left ACL who was seen and examined today in the pre-op area. Parents report no problems or changes since the last examination in the PSP. Examination today is unchanged. DRUG/FOOD ALLERGIES: Allergies Allergen Reactions Latex Hives Other Other (See Comments) Band aids cause skin breakdown. Shellfish-Derived Products By testing MEDICATIONS: Prescriptions Prior to Admission Medication Sig Dispense Refill Last Dose montelukast (SINGULAIR) 10 MG tablet TAKE 1 TABLET BY MOUTH EVERY EVENING 5 06/05/2018 at Unknown time cetirizine (ZYRTEC) 10 MG tablet Take 10 mg by mouth daily. 06/05/2018 at Unknown time ALPRAZolam (XANAX) 0.5 MG tablet TAKE 1 TABLET TWICE DAILY NEEDED FOR ANXIETY 0 prn buPROPion (WELLBUTRIN XL) 150 MG XL tablet TAKE 1 TABLET BY MOUTH EVERY DAY 2 will start after surgery etogestrel 68 mg IMPL by Subdermal route Taking at has been in one year VITAL SIGNS: Vitals: 06/06/18 0933 BP: 126/80 Pulse: 105 Resp: 22 Temp: 36.3 C (97.3 F) Ht Readings from Last 1 Encounters: 06/06/18 175.5 cm Wt Readings from Last 1 Encounters: 06/06/18 (!) 108.8 kg Body mass index is 35.32 kg/m . Facility age limit for growth percentiles is 20 years. SpO2 Readings from Last 3 Encounters: 06/06/18 100% 06/05/18 100% 02/11/15 100% PLAN: Surgery as scheduled OTHER FINDINGS OR COMMENTS: Jewelry removed? yes Vivek Lucio MD 06/06/2018 12:03 PM HCG,URINE Collected: 06/06/2018 Status: F Source: [place] 12:00 PM [facility] REPOSITORY Order Comment: If urine specimen unobtainable, please obtain serum HCG. TYPE CODE TESTS RESULT OUT OF REFERENCE UNITS RANGE LAB HCGUR(LOINC mIU/mL ) HCG,Urine Negative Result Comment: Non females and males-Negative females-Positive Performed By: #### HCGUR #### [place] [address] ED NOTE Observed: 03/16/2018 Status: COMPLETED Source: [place] 2:34 PM CLINIC OTHER CAMPUS REPOSITORY HNO ID: [id number] Author: Adilia Love (Rn), RN Service: Emergency Medicine Author Type: Registered Nurse Type: ED Notes Filed: 03/16/2018 2:34 PM Note Text: Discharge instructions reviewed with patient via teachback. Pt awake and alert, respirations stable. Pt verbalizes understanding. No further questions for this RN. URINALYSIS Collected: 03/16/2018 Status: F Source: [place] 2:00 PM CLINIC OTHER CAMPUS REPOSITORY TYPE CODE TESTS RESULT OUT OF RANGE REFERENCE UNITS LAB UCOL Yellow Color Abnormal Straw Alert LAB [facility] Clear Clarity Clear LAB UGLUC Negative mg/dL Glucose, Urine Negative LAB UBIL Negative Bilirubin, Urine Negative LAB UKET Negative Ketones, Urine Negative LAB USPG 1.001-1.029 Specific [place], Ur <=1.005 LAB UHGB Negative Abnormal Hemoglobin/Blood, Trace Alert Ur LAB UPH 5.0-8.0 pH 7.5 LAB UPROT Negative mg/dL Protein, Urine Negative LAB UUROB 0.2-1.0 Urobilinogen 0.2 LAB UNITR Negative Nitrites Negative LAB ULKEST Negative Leukest Negative Performed By: #### UA, UAMIC #### [facility] [address] [facility] [phone] URINE MICROSCOPIC Collected: 03/16/2018 Status: F Source: [place] (FOR LAB USE ONLY) 2:00 PM CLINIC OTHER CAMPUS REPOSITORY TYPE CODE TESTS RESULT OUT OF REFERENCE UNITS RANGE LAB UWBC 0-5 /HPF WBC 0-5 LAB URBC 0-3 /HPF RBC 0-3 LAB UCAST 0 /LPF Cast SEE COMMENT Result Comment: 0 LAB UBACT 0 /HPF Abnormal Bacteria Alert Few Performed By: #### UA, UAMIC #### [facility] [address] [facility] [phone] HCG QUAL, URINE Collected: 03/16/2018 Status: F Source: [place] 2:00 PM [facility] OTHER CAMPUS REPOSITORY TYPE CODE TESTS RESULT OUT OF REFERENCE UNITS RANGE LAB UHCG Negative HCG Qual, Negative Urine Result Comment: False positives and false negatives are rare but have been described. Clinical correlation of the findings is recommended. Performed By: #### UHCG #### [facility] [address] [facility] [phone] CT FLANK WO IVCON Observed: 03/16/2018 Status: F Source: [place] 12:56 PM [facility] OTHER CAMPUS REPOSITORY * * *Final Report* * * DATE OF EXAM: Mar 16 2018 12:56PM [facility] 0529 - CT FLANK WO IVCON / PROCEDURE REASON: Flank pain * * * * Physician Interpretation * * * * EXAMINATION: CT ABDOMEN AND PELVIS WITHOUT IV CONTRAST (Renal stone protocol) CLINICAL HISTORY: Unspecified flank pain. Hematuria. TECHNIQUE: Non-contrast imaging of the abdomen and pelvis was performed through the urinary tract. Study performed without intravenous or oral contrast to evaluate for urinary tract calculus. MQ: CTAbdPelvF_1 Contrast: IV contrast: None Oral contrast: None CT Radiation dose: Integrated dose-length product (DLP) for this visit = 1055 mGy*cm. CT Dose Reduction Employed: Automated exposure control (AEC) COMPARISON: None. RESULT: Limitations: Unenhanced imaging is limited for the evaluation of some renal and other intra-abdominal and pelvic pathology. Urinary Tract: Right kidney and ureter: No calculus. No hydronephrosis. No finding to suggest cyst or mass in the unenhanced kidney. Left kidney and ureter: There are several nonobstructing stones in the lower pole of the left kidney the largest measures 5 mm Bladder: No calculus. RESULT: Liver: No mass. Homogeneous texture. Biliary: No ductal dilatation is seen. Gallbladder is unremarkable. Spleen: Spleen is unremarkable. Pancreas: No mass or duct dilation. Adrenals: Adrenal glands are unremarkable. GI tract: No bowel dilatation is seen. No evidence of obstruction. The appendix image 113 is visualized and is unremarkable. Lymph nodes: Multiple subcentimeter lymph nodes throughout the small bowel mesentery this is a nonspecific finding. Mesentery/Peritoneum: No ascites or mass. Vasculature: No evidence of dilatation of the abdominal aorta. Pelvis: Small low densities in the right ovary felt to represent cysts. Bones/Soft Tissues: No significant findings identified. Lower thorax: Unremarkable. IMPRESSION: 1. Several small nonobstructing stones in the left kidney 2. Appendix is unremarkable. 3. Multiple subcentimeter lymph nodes throughout the small bowel mesentery this is a nonspecific finding and can be normal in a young patient. Clinical correlation. Dimmer Board Operator: LEIGHA Transcribe Date/Time: Mar 16 2018 1:03P Dictated by : BALJINDER LANDRUM DO This examination was interpreted and the report reviewed and electronically signed by: BALJINDER LANDRUM DO on Mar 16 2018 1:11PM EST [id number] ED NOTE Observed: 03/16/2018 Status: COMPLETED Source: [place] 12:30 PM [facility] OTHER CAMPUS REPOSITORY HNO ID: [id number] Author: Adilia Love (Rn), RN Service: Emergency Medicine Author Type: Registered Nurse Type: ED Notes Filed: 03/16/2018 2:35 PM Note Text: Pt states that nausea is much improved at this time. No complaints or concerns at this time. CBC AND DIFFERENTIAL Collected: 03/16/2018 Status: F Source: [place] 12:25 PM [facility] OTHER CAMPUS REPOSITORY TYPE CODE TESTS RESULT OUT OF REFERENCE UNITS RANGE LAB WBC 3.70-11.00 k/uL WBC High 12.11 LAB RBC 3.90-5.20 m/uL RBC High 5.41 LAB HGB 11.5-15.5 g/dL Hemoglobin 14.8 LAB HCT 36.0-46.0 % Hematocrit 43.6 LAB MCV 80.0-100.0 fL MCV 80.6 LAB MCH 26.0-34.0 pG MCH 27.4 LAB MCHC 30.5-36.0 g/dL MCHC 33.9 LAB RDWCV 11.5-15.0 % RDW-CV 13.3 LAB PLTCT 150-400 k/uL Platelet High Count 409 LAB MPV 9.0-12.7 fL Low MPV 8.8 LAB ANEUT % Neut% 63.1 LAB AANEUT 1.45-7.50 k/uL Abs Neut High 7.65 LAB ALYMP % Lymph% 26.3 LAB AALYMP 1.00-4.00 k/uL Abs Lymph 3.18 LAB AMONO % Sunflower% 6.5 LAB AAMONO <0.87 k/uL Abs Sunflower 0.79 LAB AEOS % Eosin% 3.6 LAB AAEOS <0.46 k/uL Abs Eosin 0.43 LAB ABASO % Baso% 0.5 LAB AABASO <0.11 k/uL Abs Baso 0.06 Performed By: #### CBCDIF, CMP #### [facility] [address] [facility] [phone] COMP METABOLIC PANEL Collected: 03/16/2018 Status: F Source: [place] 12:25 PM CLINIC OTHER CAMPUS REPOSITORY TYPE CODE TESTS RESULT OUT OF REFERENCE UNITS RANGE LAB TP 6.3-8.0 g/dL Protein, Total 7.8 LAB ALB 3.9-4.9 g/dL Albumin 4.6 LAB CA 8.5-10.2 mg/dL Calcium, Total 9.8 LAB TBIL 0.2-1.3 mg/dL Bilirubin, Total 0.4 LAB ALKP 32-117 U/L Alkaline Phosphatase 62 LAB AST 13-35 U/L AST 15 LAB GLU 74-99 mg/dL Glucose 86 Result Comment: The [place] Diabetes Association (ADA) provides guidance for cutoff values for fasting glucose and random glucose. The ADA defines fasting as no caloric intake for at least 8 hours. Fas ting plasma glucose results between 100 to 125 mg/dL indicate increased risk for diabetes (prediabetes). Fasting plasma glucose results greater than or equal to 126 mg/dL meet the criteria for diagnosis of diabetes. In the absence of unequivocal hyperglycemia, results should be confirmed by repeat testing. In a patient with classic symptoms of hyperglycemia or hyperglycemic crisis, random plasma glucose results greater than or equal to 200 mg/dL meet the criteria for diagnosis of diabetes. Reference: Standards of Medical Care in Diabetes 2016, [place] [employer] Association. Diabetes Care. 2016.39(Suppl 1). LAB BUN 7-21 mg/dL BUN 12 LAB CRET 0.58-0.96 mg/dL Creatinine 0.73 LAB NA 136-144 mmol/L Sodium 137 LAB K 3.7-5.1 mmol/L Potassium 4.5 LAB CL 97-105 mmol/L Chloride 100 LAB CO2 22-30 mmol/L CO2 22 LAB AGAP 9-18 mmol/L Anion Gap 15 LAB ALT 7-38 U/L ALT 14 LAB GFRAA eGFR- Amer. >60 LAB GFRNAA . eGFR-All Other Races >60 Result Comment: eGFR (Estimated GFR) Units of measure: mL/min/1.73 meters squared eGFR is derived from the reexpressed MDRD Study equation using the following parameters: serum creatinine, age, gender and race. The creatinine assay has been calibrated to be traceable to IDMS. An eGFR <60 mL/min/1.73m2 for >3 months is consistent with chronic kidney disease. Refer to KDOQI guidelines for clinical interpretation. In patients with unstable renal function, e.g. those with acute kidney injury, the eGFR may not accurately reflect actual GFR. Performed By: #### CBCDIF, CMP #### [facility] [address] [facility] [phone] ED PROV NOTE Observed: 03/16/2018 Status: COMPLETED Source: [place] 11:16 AM CLINIC OTHER CAMPUS REPOSITORY O ID: [id number] Author: Pedro Zimmerman MD Service: (none) Author Type: Physician Type: ED Provider Notes Filed: 03/16/2018 2:51 PM Note Text: ED Provider Note Patient Name: Ralph Barney SERVICE DATE: 03/16/18 History Patient presents with: Flank Pain: left 23-year-old female with a history of asthma presents to the emergency department with her mother for evaluation of left-sided flank pain. Patient states she woke up this morning and felt as though she has had to use the restroom. She states that she developed sudden left flank pain which wraps around to her front. Patient notes associated nausea. She states the pain waxes and wanes. She describes it as feeling uncomfortable and a 3-4/10. Patient denies vomiting. She denies blood in her urine. No frequency, urgency or dysuria. She states her last menstrual cycle was last week. She denies any history of kidney stones. She denies any fever. PAST MEDICAL HISTORY Diagnosis Date - Asthma with heavy exercise or allergies - Multiple allergies - Sprain of left ankle 10/13/2015 PAST SURGICAL HISTORY Procedure Laterality Date - MENISCAL REPAIR RAFIQ GROSS,8493333 left knee No family history on file. Social History Social History Main Topics - Smoking status: Never Smoker - Smokeless tobacco: Never Used - Alcohol use No - Drug use: No - Sexual activity: Not on file ALLERGIES Allergen Reactions - Latex Rash Review of Systems Constitutional: Negative for chills and fever. HENT: Negative for congestion, ear pain, rhinorrhea and sore throat. Eyes: Negative for photophobia and visual disturbance. Respiratory: Negative for cough, chest tightness and shortness of breath. Cardiovascular: Negative for chest pain. Gastrointestinal: Positive for nausea. Negative for abdominal pain, diarrhea and vomiting. Genitourinary: Positive for flank pain. Negative for dysuria, frequency, hematuria and urgency. Musculoskeletal: Negative for back pain, neck pain and neck stiffness. Skin: Negative for rash. Neurological: Negative for dizziness, syncope, weakness, light-headedness and headaches. Hematological: Negative for adenopathy. Does not bruise/bleed easily. Psychiatric/Behavioral: Negative for agitation and confusion. Physical Exam BP 160/111 Pulse 94 Resp 20 SpO2 100% LMP 03/09/2018 Physical Exam Constitutional: She is oriented to person, place, and time. She appears well-developed and well-nourished. No distress. HENT: Head: Normocephalic and atraumatic. Eyes: EOM are normal. Pupils are equal, round, and reactive to light. Neck: Normal range of motion. Neck supple. Cardiovascular: Normal rate, regular rhythm, normal heart sounds and intact distal pulses. Exam reveals no friction rub. No murmur heard. Pulmonary/Chest: Effort normal and breath sounds normal. No respiratory distress. She has no wheezes. She has no rales. Abdominal: Soft. Bowel sounds are normal. She exhibits no distension. There is no tenderness. There is no rebound, no guarding and no CVA tenderness. Musculoskeletal: Normal range of motion. She exhibits no edema or tenderness. Neurological: She is alert and oriented to person, place, and time. Skin: Skin is warm and dry. No erythema. Psychiatric: She has a normal mood and affect. Nursing note and vitals reviewed. Diagnostic Testing ED Labs Ordered and Reviewed - No data to display Procedures Medical Decision Making MDM Patient upon arrival did not appear toxic or lethargic. Vital signs were reviewed. Patient is presenting for evaluation of left flank pain which has been waxing and waning since this morning. She denies history of kidney stones in the past. Patient will workup here to include laboratory studies, urinalysis and CT flank. She was given IV fluids, Toradol and Zofran. Urinalysis reveals trace hemoglobin otherwise unremarkable. CBC reveals a white count of 12,000. Platelets are 409. Urine is negative. CMP is unremarkable. CT flank reveals several small nonobstructing stones in the left kidney. Appendix is unremarkable. Patient has multiple subcentimeter lymph nodes throughout the small bowel mesentery which is a nonspecific finding. Patient and her mother were educated on these results. Patient states that she feels much better than when she arrived. Patient was educated on differential diagnosis including the possible recently passed urolithiasis. Patient will continue kqvq-ina-qlptcac anti-inflammatories and he recommended naproxen. She will follow-up with her family physician. Patient and her mother understand the plan and agreeable. Patient was discharged home in stable condition. Attending Note I have personally performed a face to face assessment of the patient and have reviewed the PA/BLOW TORCH BURNER note. My cox findings include: History the patient presents with complaint of having left flank pain denies prior known history of kidney stones her pain is been intermittent and waxes and wanes. Exam awake in no distress hemodynamically stable no CVA tenderness on percussion the anterior abdomen soft nontender Assessment/Plan urine was only trace positive for blood and negative for nitrites and leukocytes test negative, white count 12,000 hemoglobin 15 comprehensive metabolic panel unremarkable CT scan of flank shows several small nonobstructing stones left kidney the appendix was unremarkable. Patient was discharged home advise to use anti-inflammatories follow-up with PCP return if a symptom worsens Other additions or changes: None Signature: Pedro Zimmerman MD Date: 03/16/2018 Time: 2:50 PM ED Course / Clinical Impression Clinical Impressions as Mar 16 1428 Left flank pain Plan The patient was DISCHARGED: Counseled patient and mother regarding lab results AND radiology results AND suspected diagnosis AND need for follow-up. Discharged home with verbal and written instructions. They were instructed to return as needed for persistent or worsening symptoms or any new concerns. Condition at time of disposition: stable SIGNATURE: RAMÓN Yost (Jaycob) JAYCOB Andre 03/16/18 1430 Pedro Zimmerman MD 03/16/18 1451 ED NOTE Observed: 03/16/2018 Status: COMPLETED Source: [place] 11:16 AM [facility] REPOSITORY HNO ID: [id number] Author: Adilia Love (Rn), RN Service: Emergency Medicine Author Type: Registered Nurse Type: ED Notes Filed: 03/16/2018 11:18 AM Note Text: Dr. Zimmerman at bedside ED NOTE Observed: 03/16/2018 Status: COMPLETED Source: [place] 11:14 AM [facility] REPOSITORY HNO ID: [id number] Author: Adilia Love (Rn), RN Service: Emergency Medicine Author Type: Registered Nurse Type: ED Notes Filed: 03/16/2018 11:15 AM Note Text: Pt presents with sudden onset left flank pain that started this morning after urinating. Pt c/o nausea. Pain has lessened upon arrival, described as uncomfortable. Pt denies urinary symptoms or hx of kidney stones ED NOTE Observed: 03/16/2018 Status: COMPLETED Source: [place] 11:12 AM [facility] REPOSITORY HNO ID: [id number] Author: Adilia Love (Rn), RN Service: Emergency Medicine Author Type: Registered Nurse Type: ED Notes Filed: 03/16/2018 11:18 AM Note Text: Carlene ARORA at bedside ALLERGIES ALLERGIES DATE TYPE / CODE NAME / CODE REACTION SEVERITY SOURCE 11/18/2018 Drug latex/[id number] Hives Unknown [facility] Allergy/416 (RXNORM) Hospital 440917(SNOM Repository ED CT) 09/26/2015 DRUG LATEX RASH [facility] INGREDI/419 Other [place] 731534(SNOM Repository ED CT) 04/14/2014 Drug SHELLFISH-DERIVE By testing [facility] Class/95243 D PRODUCTS Hospital 1003(SNOMED Repository CT) 04/09/2014 DRUG LATEX [facility] INGREDI/419 Hospital 540022(SNOM Repository ED CT) 04/09/2014 Food/038250 OTHER Band aids cause [facility] 000(SNOMED skin breakdown. Hospital CT) Repository Drug/522042 shellfish Y[facility]danism 003([facility]OM[facility]) System Repository Drug/125000 Latex HIVES Yazdanism 003([facility] CT) System Repository ENCOUNTERS ENCOUNTERS ADMIT/DISCHARGE ACCOUNT NUMBER ADMITTING ENCOUNTER LOCATION SOURCE CLASS 11/21/2018/ [id number] Marielle, [facility] ng:SH EDRoom: Health System WR Repository 11/21/2018 [id number] Ambulatory 9509 [facility] Repository 11/20/2018/ [id number] Ambulatory Jordon [place] 019 [facility] ng:SDCRoom: Repository AC03 10/31/2018/ [id number] DEEPA, Ambulatory Building:OR [place] 018 [facility] Repository 09/05/2018/ [id number] DEEPA Ambulatory Building:OR [place] 018 [facility] Repository 06/21/2018/ [id number] Jhoanceline Emergency [facility] 018 [facility] ng: EDRoom: Health System WR Repository 06/21/2018 [id number] Ambulatory 9509 [facility] Repository 06/06/2018/ [id number] DEEPA Ambulatory Building:OR [place] 018 [facility] Repository 06/05/2018/ [id number] Ambulatory Building:PRE [place] 018 [facility] Repository 03/16/2018/ [id number] Emergency [address] Other [place] Repository PAYERS PAYERS ENCOUNTER GUARANTOR PAYER SUBSCRIBER SOURCE 11/21/2018 RALPH Melissa Primary [facility] [id number] licy Number: [id number] System [address] Effective [address] Repository [place], [place] Date:2018-11-05 [facility] [place] [address]Xgz: [id number] [address]Xtc: Name:CD:[id number] (HP) (HP) () 11/21/2018 RALPH Primary [facility]ALPH [facility]: [facility] licy Number: [id number] Repository [place] [id number] [address] [place], [place] Date:Plan [place], [place] [id number]: Name:[facility] [phone]: [place], [place] (HP) [phone]: [phone] (HP) [phone] 11/20/2018 RALPH G Primary NATALI C Jordon [place] [address] Insurance:[facility]: [facility] Number: [id number] [place], [place] [id number] Repository [address]Sad: [phone]) Date:2459-93-18[phone] (HP) [address], [place] [address]XG: 11/20/2018 Secondary NOT GIVENUNK Jordon Insurance:SELF PAY [facility] Number: Effective Repository Date:2018-11-13 10/31/2018 RALPH BABB [facility]: [facility] licy Number: [id number] Repository [place] [id number] [address] [place], [place] Date: [place], [place] [address]Cjy: [phone] (HP) 09/05/2018 RALPHMan BABB Primary SARA ADAM [facility]: [facility] licy Number: [id number] Repository [place] [id number] [address] [place], [place] Date: [place], [place] [address]Bvk: [phone] (HP) 06/21/2018 RALPH G Primary SARA Yazdanism [facility]: Insurance:[facility]: [facility] licy Number: [id number] System [address] Effective [address] [facility] [place] Date:2018-06-21 [place] [address]Sia: [id number] [address]Mxl: Name::[id number] BOX (HP) [place] (HP)Tel: [phone]: ([phone] 06/21/2018 RALPH Primary RALPH [facility]: Insurance:[facility]: [facility] licy Number: [id number] Repository [place] [id number] 7 [address] [facility] [place], [place] Date:[place], [place] [address]Yxu: (330) [facility] [address] [address]Bxt: (HP) [place], [place] [phone] (HP) [phone]: 06/06/2018 RALPHMan BABB [facility]: [facility] licy Number: [id number] Repository [address] [id number] [address] [place], [place] Date: [place], [place] [address]Syb: [phone]) [phone] (HP) 06/05/2018 RALPH HOLLEY [facility]: [facility] licy Number: [id number] Repository [place] [id number] [address] [place] [place], [place] Date: [place], [place] [address]Qbc: [phone]) [phone] (HP)
--- OUTSIDE RECORDS SUMMARY | 2019-01-25 02:49 | XMS RPT_ITS ---
:1995 Author Organization [employer] Address [facility] [place] [address] Phone Care Team Providers Name Role Phone Naveed SCHWARTZ, Vivek Maier Unavailable Reason for Visit Reason For Visit Description Start Date New Complaint Preliminary reason for visit data, not yet [...] Plan of Care Type Date Detail Appointment 03:30 PM Vivek Lucio MD, [address] [address], [place], [address], Patient education \[email or web address]\[email or web address]\[email or web address] _[email or web address].pdf Medications Medication Instructions Start Stop Generic Name NDC Provider Date Date WELLBUTRIN SR taken once daily / BUPROPION HCL 04876924928 Vivek Maier 150 MG 08 Naveed SCHWARTZ [id number] ZYRTEC ALLERGY 1 tablet daily / CETIRIZINE HCL 85703217513 Sandy 10 MG TABS 20 [employer] SINGULAIR 10 1 tablet daily / MONTELUKAST [id number] Sandy MG TABS 20 SODIUM [employer] PROAIR HFA 2 inhalation / ALBUTEROL 14026169983 Sandy AERS daily as 20 SULFATE AERS [employer] needed PATANOL SOLN 1-2 drops each / OLOPATADINE 17220990371 Sandy eye daily as 20 HCL SOLN [employer] needed Conditions or Problems Problem Name Problem Onset Status Entry Provider Comment Standard Annotate Code Date Date Description Other tear 721270625 Active Vivek Maier Tear of of lateral (SNOMED CT) / Fleissner lateral meniscus, MD meniscus of current knee injury, left knee, subsequent encounter Other tear S83.282A Active Vivek Maier Other tear of lateral (ICD-10-CM) / Fleissner of lateral meniscus MD meniscus, current current injury left injury, left knee initial knee, encounter initial encounter Allergies, Adverse Reactions, Alerts Allergy Name Reaction Start Date Severity Status Provider Description SEASONAL Critical Active Sandy Corsaro [employer] LATAX Critical Active Sandy Corsaro [employer] W[employer]ER ANIMALS Critical Active Sandy Corsaro INTER[employer] WIRER Social History Concept Description Observation Name Observation Value Units Start Date Employment detail OCCUPATION#1 student Preliminary social history data, not yet signed by the author as of Vital Signs Date Name Value Unit Description BMI (Body Mass 34.85 kg/m2 Body Mass Index Index) [Ratio] Preliminary vital sign data, not yet signed by the author as of BP Diastolic 82 mm[Hg] blood pressure, diastolic Preliminary vital sign data, not yet signed by the author as of BP Systolic 130 mm[Hg] blood pressure, systolic Preliminary vital sign data, not yet signed by the author as of Heart Rate 74 /min pulse rate E&M Preliminary vital sign [...] Value Unit Range Flag Description Office Visit: New Complaint, Rm: 31 MEDS REVIEW Done Documentation of [...] within normal parameters - no follow-up required [facility]-[id number] Patient Encounter Medications Administered No information available. [...]
== END 2018-11-20 17:24 | disposition home or self-care (01) ==
LOC: SDC 10:09 → AC 10:12
PROVIDERS: Anesthesiology; Family Provider Family Medicine; PCP Family Medicine; Referring Provider Urology; Visit Provider Urology
PROC: (CPT 50590; principal; 2018-11-20 11:35)
DX: N20.0 Calculus of kidney (principal); J45.909 Unspecified asthma, uncomplicated; F41.9 Anxiety disorder, unspecified; F32.9 Major depressive disorder, single episode, unspecified; Z87.891 Personal history of nicotine dependence; Z87.442 Personal history of urinary calculi; Z79.51 Long term (current) use of inhaled steroids; Z79.891 Long term (current) use of opiate analgesic; Z79.899 Other long term (current) drug therapy
CPT/HCPCS: 00873; 50590; 74176; 81025; J7120; J2405

== ENCOUNTER → 2018-12-27 14:39 | Outpatient (CLI) | payer OTHER, SELFPAY ==
[2018-11-20 10:32] VITALS: BMI 35.8
--- NOTE | 2018-12-27 14:46 | RAD_ITS ---
STUDY: X-RAY - ABDOMEN/PELVIS REASON FOR EXAM: Female, 23 years old. History of kidney stones. TECHNIQUE: Single AP view of the abdomen / pelvis. COMPARISON: None. FINDINGS: There is an unremarkable bowel gas pattern. No abnormal calcifications are seen. The visualized liver, spleen and kidneys are grossly normal in size. Normal soft tissue structures. Normal visualized osseous structures. RAD/Abdomen Single View IMPRESSION: 1. Nonspecific gas pattern. 2. No abnormal calcifications are seen on this examination. Electronically Signed: Nickolas Iniguez MD at 14:29 EST Tel , Service support ,
== END ==
PROVIDERS: Family Provider Family Medicine; PCP Family Medicine; Referring Provider Urology; Visit Provider Urology
DX: N20.0 Calculus of kidney (principal)
CPT/HCPCS: 74018

== ENCOUNTER → 2020-05-25 | Outpatient (CLI) | payer OTHER, SELFPAY ==
[2018-11-20 10:32] VITALS: BMI 35.8
--- NOTE | 2020-05-25 07:39 | CT_ITS ---
STUDY: CT ABDOMEN AND PELVIS WITHOUT CONTRAST REASON FOR EXAM: Female, 25 years old. LEFT FLANK PAIN WITH HISTORY OF RENAL STONES AND LITHOTRIPSY RADIATION DOSAGE (If Supplied By Facility): CTDIvol = ( 13.20 ) mGy, DLP = ( 715.71 ) mGycm TECHNIQUE: Transaxial images were obtained from the dome of the diaphragm to the symphysis pubis without oral contrast, and without intravenous contrast. Sagittal and coronal images were reconstructed. Individualized dose optimization techniques were used for this CT. COMPARISON: 11/20/2018 FINDINGS: The visualized lung bases are unremarkable. The visualized portions of the heart are within normal limits. Normal liver. Normal gallbladder and extrahepatic biliary system. Normal spleen. Normal pancreas. Normal bilateral adrenal glands. There are punctate nonobstructing stones in the left kidney. There is a nonobstructing 4 mm stone in the right UPJ. Both ureters are of normal course and caliber without evidence of obstruction. Normal visualized stomach. Normal small intestine. Normal colon. The appendix is visualized and appears normal. Appendix best seen on coronal recon images 50-55. Normal abdominal aorta. Normal inferior vena cava. Normal retroperitoneum. Normal urinary bladder. Normal-appearing uterus. No suspicious adnexal mass or free fluid Normal abdominal wall. Normal osseous structures. CT/Abdomen/Pelvis without Cont IMPRESSION: Bilateral nonobstructing nephrolithiasis No CT evidence of acute inflammatory process, normal appendix visualized No free intraperitoneal fluid, air, or suspicious adenopathy Retained stool Electronically Signed: Brad Meza MD at 9:28 EDT , Service support ,
== END | disposition home or self-care (01) ==
LOC: CT 07:36
PROVIDERS: PCP Family Medicine; Referring Provider Urology; Visit Provider Urology
DX: N20.0 Calculus of kidney (principal); R10.9 Unspecified abdominal pain
CPT/HCPCS: 74176

== ENCOUNTER → 2020-06-07 | Outpatient (CLI) | payer OTHER, SELFPAY ==
[2018-11-20 10:32] VITALS: BMI 35.8
--- NOTE | 2020-06-07 13:37 | RAD_ITS ---
STUDY: X-RAY - ABDOMEN/PELVIS REASON FOR EXAM: Female, 25 years old. Kidney stone TECHNIQUE: Single AP view of the abdomen / pelvis. COMPARISON: Comparison is made with prior study dated 12/27/2018. FINDINGS: Normal visualized lung bases. There is an abundance of fecal material throughout the colon. Tiny calcifications are seen in both kidneys. Normal soft tissue structures. Normal visualized osseous structures. RAD/Abdomen Single View IMPRESSION: Large amount of fecal material is seen in the colon. Tiny calcifications are seen in both kidneys. Electronically Signed: David Gomez, at 15:37 EDT , Service support ,
== END | disposition home or self-care (01) ==
LOC: MTRAD 13:35
PROVIDERS: PCP Family Medicine; Referring Provider Urology; Visit Provider Urology
DX: N20.0 Calculus of kidney (principal)
CPT/HCPCS: 74018